=== PATIENT | male | born 1990 | race Caucasian/White ===

== ENCOUNTER 2020-03-23 13:30 | Outpatient (CLI) | payer OTHER ==
--- NOTE | 2020-03-23 13:22 | SLEEP CARE CONSULTATION ---
Information from patient questionnaire entered by Alona Finney. I have reviewed and concur with the information entered by Alona Finney. This document represents the service I personally performed and the decisions made by me, Marily Beard MD, [facility]. History of Present Illness Service Date and Time: 03/23/2020 1340 Reason for Visit: New patient Additional HPI information: I had the pleasure of seeing Mr. Lainez today regarding obstructive sleep apnea- hypopnea. As you know, he is a 29 year old gentleman who was diagnosed with the sleep-disordered breathing around [id number] in [place], [place]. He does not recall the severity. The report is not available. He has not used CPAP for at least 2 to 3 years. He used the CPAP regularly for about 3 years. He is not sure how much benefit he got out of using the CPAP. Without the CPAP, he snores and his ex- noticed pauses in his breathing. He feels tired in the afternoon. He does not recall waking up choking. Social History The patient's occupation is a [employer]. Patient is Single and lives in . Allergies and Home Medications Drug allergies reviewed: Yes Home medication list reviewed: Yes Physical Exam Height: 5 ft 11 in Weight: 175 lb Body Mass Index: 24.4 BMI Classification: Healthy weight Impression and Plan IMPRESSION: 1. Obstructive Sleep Apnea-Hypopnea Syndrome, possibly mild, as previously diagnosed. The patient is presently not using his CPAP. Because his response to the treatment is equivocal, I will repeat the in-laboratory polysomnography to confirm the diagnosis and reassess its severity before insisting that he goes back on the positive airway pressure therapy. We also discussed the oral appliance therapy which is something he is interested in. Plan: 1. Repeat in-laboratory polysomnography 2. Avoid long distance driving or when feeling sleepy. 3. Avoid alcohol, sedative and muscle relaxant around bedtime. 4. Return for a follow up after the sleep study. Visit Type: Telehealth Video Video Type: 1,2,3 Listo Patient Location: Home Location of Provider: Home Patient agrees and consents to this telehealth visit type: Yes Patient agrees to have their insurance billed: Yes Time Spent with Patient (minutes): 15 Provider Statement: I spent 100% of the Telehealth Video Call with the patient with greater than 50% spent counseling the patient and coordination of care.
== END 2020-03-23 13:31 | disposition home or self-care (01) ==
LOC: SC 13:30
PROVIDERS: ATTEND Internal Medicine Pulmonary Disease
DX: G47.33 Obstructive sleep apnea (adult) (pediatric) (principal)

== ENCOUNTER 2020-04-21 07:11 | Outpatient (CLI) | payer OTHER | END 2020-04-21 07:12 | disposition home or self-care (01) | LOC: SC 07:11 | PROVIDERS: ATTEND Internal Medicine Pulmonary Disease | DX: R06.83 Snoring (principal); G47.10 Hypersomnia, unspecified | CPT/HCPCS: 95810 ==

== ENCOUNTER 2020-05-06 12:48 | Outpatient (CLI) | payer OTHER ==
--- NOTE | 2020-05-06 09:03 | SLEEP CARE CONSULTATION ---
Information from patient questionnaire entered by Junie Garcia. I have reviewed and concur with the information entered by Junie Garcia. This document represents the service I personally performed and the decisions made by me, Lucía Chávez, RN, MSN, [employer]. History of Present Illness Service Date and Time: 05/06/2020 1248 Current [place] Sleepiness Scale score: 16 Additional HPI information: LUCY CUELLAR returns for follow up and results of the recently performed polysomnography. I explained the pathophysiology behind obstructive sleep apnea. Patient does not have sleep apnea and was advised how weight gain could increase the risk of developing sleep apnea in the future. Patient has mild to loud snoring. Snoring can be reduced by weight loss. Weight loss is best achieved with diet consult. Patient instructed to contact PCP for referral. Snoring can also be treated with an oral appliance from a dentist. Advised to check insurance coverage. In addition, an ENT evaluation can be do to see if other treatment is indicated. Patient counseled not drink alcohol less than 4 hours before bedtime as it can increase snoring and apnea. Patient does not drink alcohol. Patient was cautioned about risks of drowsy driving until sleepiness symptoms resolve. Patient reports occasional drowsy driving. [facility] patient education on snoring and sleep apnea given and reviewed. Current symptoms: He is waking to oral dryness that he feels is due to snoring; He wears a oral appliance for grinding teeth in past. Current appliance not functioning and has appointment at end of month. He has used these for years intermittently. He continues to report sleepiness symptoms. His current bedtime is 8:30am as gets off shift at 7am. It takes a few minutes to an hour to fall asleep. His wake time is about 2:30pm as he cares for his children from 3 - 7pm approx imately. He takes about 1-1.5 hour nap before shift. His shift is from 10pm to 7am. He rotates shifts once for a week every couple months. Caffeine stopped at 2am while working. He wears sunglasses when gricelda on way home from work to home. He uses Blue Blockers at [employer] but not with scrolling through phone when relaxing before sleep. Sleep Study - Results Type of Sleep Study: Polysomnography Prior sleep studies: Yes Year and Where: [id number] 2020 Polysomnography/Home Sleep Study results: The quality of the study is good. The patient had normal sleep efficiency. Except for mild sleep fragmentation, the sleep architecture was also normal. Respiratory monitoring showed no significant sleep disordered breathing (AHI = 0.9) or hypoxia (lorenzo oxygen saturation of 90%). The few respiratory events occurred mainly during REM sleep (supine AHI = 2.3; non-supine = 0.80). Snore was light to loud in intensity. There was no significant periodic leg movement of sleep. Cardiac rhythm was normal sinus rhythm without significant arrhyt hmia. No abnormal behavior (parasomnia) observed during the night. Allergies and Home Medications Known drug allergies: No Home medication list reviewed: No Review of Systems Review of systems same as previous: Yes Physical Exam Blood Pressure: 120/70 Cuff size: long Heart Rate: 66 O2 Saturation: 98 Height: 5 ft 11 in Weight: 183 lb 12.8 oz Body Mass Index: 25.6 BMI Classification: Overweight Impression and Plan 1. Snoring but no significant sleep disordered breathing. Patient advised that often weight loss will reduce snoring as well as apnea risk. An oral appliance can also be used for snoring. This would require a dental consultation. Patient cautioned not to use other online appliances as can cause bite issues. Patient has used an oral appliance for grinding his teeth and advised to discuss one for snoring at his next follow up. Patient is advised to check if insurance will cover. An ENT consult can also be helpful to determine if any other treatment is an option. 2. Shift work disorder : Patient seems to be getting about 5.5 hours of sleep after working the [employer] then will take about an hour or hour and half nap before his shift. He cannot increase his time of sleep into afternoon due to care of his children. Thus he is advised to change his relaxing bedtime ritual to use Blue Blockers if uses phone to relax with to reduce Blue light that can affect his melatonin level. However, he was advised how looking through social media to relax can also be alerting due to content. Instead he is advised to to read something relaxing. Perhaps a change in ritual will allow him to fall asleep sooner and allow a little more sleep. I also reviewed other measures to make room more comfortable for daytime sleeping as described in [facility] Coping with shift work. In addition I discussed a transition to other shifts when he has to rotate as shown in pamphlet. 3. Fatigue and hypersomnia - Patient advised to also follow up with PCP for further evaluation of fatigue / hypersomnia to see if there is any other medical condition contributing to his symptoms. * Follow up with dentist re oral appliance * Follow up with PCP for referral for ENT for consultation on snoring * Follow up with PCP for further evaluation of sleepiness symptoms. * Attempt to lose some weight * Avoid alcohol consumption near bedtime * The patient is cautioned about driving until sleepiness is completely resolved. * Return as needed Visit Type: In Office Time Spent with Patient (minutes): 32 Provider Statement: I spent 100% of the Face to Face Visit with the patient with greater than 50% spent counseling the patient and coordination of care.
[2020-05-06 13:41] VITALS: BP 120/70
== END 2020-05-06 12:49 | disposition home or self-care (01) ==
LOC: SC 12:48
PROVIDERS: ATTEND Nurse Practitioner Family
DX: R06.83 Snoring (principal); G47.26 Circadian rhythm sleep disorder, shift work type; R53.83 Other fatigue; G47.10 Hypersomnia, unspecified; E66.3 Overweight; Z68.25 Body mass index [BMI] 25.0-25.9, adult
CPT/HCPCS: 99212; 99214

== ENCOUNTER 2024-05-03 14:44 | Emergency (ER) | payer OTHER ==
[2024-05-03 15:06] VITALS: BP 140/84; O2SAT 98
--- NOTE | 2024-05-03 15:58 | ED Physician Documentation ---
PD HPI BACK PAIN - Stated complaint Stated Complaint: LWR BK PX - Chief complaint Chief Complaint: Back Pain - Additional information Additional information: 33-year-old male with chronic lower back pain presents emergency department for lower back pain injury/flare. Patient says about a week ago he was moving of boxes about 20 pounds and did not notice any pain at that point in time as the night went on he started to experience some tightness and stiffness in his lower back [facility] and they prescribed him methocarbamol which she says in the past does normally work for him he comes in today for ongoing worsening lower back pain despite taking methocarbamol Tylenol ibuprofen and is supposed to do plan on Sunday. He is hoping for an MRI. He has no urinary or bowel incontinence no nausea or vomiting no recent fevers or chills no history of IV drug use or back surgeries. PD PAST MEDICAL HISTORY - Past Medical History Past Medical History: No Cardiovascular: Hypertension GI: GERD - Past Surgical History Past Surgical History: Yes Ortho: Rotator cuff repair - Present Medications Home Medications: Ambulatory Orders Medication Instructions Recorded Confirmed Lidocaine Patch 5% [Lidoderm Patch] 1 each TOP DAILY #15 patch 05/03/24 Lisinopril [Zestril] 05/03/24 05/03/24 Omeprazole 05/03/24 05/03/24 tiZANidine [Zanaflex] 4 mg PO Q8H 10 Days #30 tablet 05/03/24 - Allergies Allergies/Adverse Reactions: Allergies Allergy/AdvReac Type Severity Reaction Status Date / Time No Known Drug Allergies Allergy Verified 05/03/24 18:37 - Social History Does the pt smoke?: No Smoking Status: Never smoker Does the pt drink ETOH?: No Does the pt have substance abuse?: No - Immunizations Immunizations are current?: Yes - POLST Patient has POLST: No PD ED PE NORMAL - Vitals Vital signs reviewed: Yes - General General: Alert and oriented X 3, No acute distress, Well developed/nourished - HEENT HEENT: Atraumatic - Neck Neck: Supple, no meningeal sign - Back Back: No CVA TTP - Derm Derm: Normal color, Warm and dry, No rash - Extremities Extremities: No deformity, No edema, No calf tenderness / cord - Neuro Neuro: Alert and oriented X 3, wrapping clerk 2-12 intact, No motor deficit, No sensory deficit, Normal speech Eye Opening: Spontaneous Motor: Obeys Commands Verbal: Oriented GCS Score: 15 - Psych Psych: Normal mood, Normal affect - Free text exam Free text exam: Neck and back are without deformity, external skin changes, or signs of trauma. Curvature of the cervical, thoracic, and lumbar spine are within normal limits. Bony features of the shoulders and hips are of equal height bilaterally. Posture is upright, gait is smooth, steady, and within normal limits. No tenderness noted on palpation of the spinous processes. Spinous processes are midline. Cervical, thoracic, and lumbar paraspinal muscles are not tender and are without spasm. No discomfort is noted with flexion, extension, and [id number] rotation of the cervical spine, full range of motion is noted. Full range of motion including flexion, extension, and [id number] rotation of the thoracic and lumbar spine are noted and without discomfort. Straight leg raise test is negative bilaterally. Sensation to the upper and l ower extremities is normal bilaterally. No clonus is noted. [employer] strength is normal bilaterally. Dorsi/plantar flexion is normal bilaterally. Results - Vitals Vitals: Vital Signs - 24 hr 05/03/24 14:58 Temperature 36.2 C L Heart Rate 80 Respiratory 16 Rate Blood Pressure 140/84 H O2 Saturation 98 Oxygen O2 Source Room air PD Medical Decision Making - ED course ED course: 33-year-old male presents emergency department for lower back pain. back pain most consistent with lumbago. Differential diagnoses includes lumbago versus musculoskeletal spasm / strain versus sciatica. No back pain red flags on history or physical. Presentation not consistent with malignancy (lack of history of malignancy, lack of B symptoms), fracture (no trauma, no bony tenderness to palpation), cauda equina (no bowel or urinary incontinence/retention, no saddle anesthesia, no distal weakness), AAA, viscus perforation, osteomyelitis or epidural abscess (no IVDU, vertebral tenderness), renal colic, pyelonephritis (afebrile, no CVAT, no urinary symptoms). Given the clinical picture, no indication for imaging at this time. Patient was given Toradol shot here in the emergency department and a prescription of tizanidine was sent to patient's preferred pharmacy he was told to discontinue the methocarbamol he was also given a lidocaine patch here in the emergency department a prescription of 5% lidocaine patches sent to his preferred pharmacy. Patient is told to follow-up with his primary care provider on Sunday or the [facility] provider first thing Sunday to discuss if he is still able to deploy. Departure - Departure Disposition: 01 Home, Self Care Clinical Impression: Low back pain Condition: Good Instructions: Tizanidine tablets or capsules, ED Back Care Tips, ED Spasm Back No Trauma, ED Sprain Strain Lumbar Prescriptions: Lidocaine Patch 5% [Lidoderm Patch] 1 each TOP DAILY #15 patch tiZANidine [Zanaflex] 4 mg PO Q8H 10 Days #30 tablet Comments: Thank you for trusting us with your care. I apologize we are not able to do an emergent MRI for your complaints here in the emergency department. Please follow-up with your primary care provider soon as possible for further evaluation, physical therapy referral and possible outpatient imaging. I have sent a prescription of muscle relaxer called tizanidine to your preferred pharmacy on file make sure that you are not taking this with your methocarbamol. I would also consider switching from ibuprofen to naproxen you can take 500 mg every 12 hours for pain and discomfort. We have given you a Toradol shot here in the emergency department so hold off on taking any Aleve until 6 hours from when you had your Toradol shot. Continue to do some light stretching to your lower back and get in the pool is much as possible to help alleviate some of the pressure and tension. Alternate between 20 minutes of ice 20 minutes of heat to help with the pain and discomfort. Please remove the lidocaine patch reapplied to the lower back in 12 hours from when we applied it. If you start to develop any fevers or chills or urinary or stool incontinence please present back to the emergency department. Wishing you a speedy recovery. Discharge Date/Time: 05/03/24 17:30
[2024-05-03] MEDS: KETOROLAC 30 MG/ML VIAL IM STA (16:53)
[2024-05-03] MEDS: LIDOCAINE PATCH 5% TOP STA (16:54)
== END 2024-05-03 17:30 | disposition home or self-care (01) ==
LOC: ED 14:44
DX: M54.50 Low back pain, unspecified (principal); G89.29 Other chronic pain; X50.0XXA Overexertion from strenuous movement or load, initial encounter; Y93.89 Activity, other specified
CPT/HCPCS: 96372; 99283; A9270